=== PATIENT | female | born 1975 | race Caucasian/White ===

== ENCOUNTER 2017-07-18 13:04 | Outpatient (CLI) | payer OTHER | END 2017-07-18 13:05 | disposition home or self-care (01) | LOC: BICMAMMO 13:04 | PROVIDERS: ATTEND Obstetrics & Gynecology | DX: Z12.31 Encounter for screening mammogram for malignant neoplasm of breast (principal); Z80.3 Family history of malignant neoplasm of breast | CPT/HCPCS: 77063; 77067 ==

== ENCOUNTER 2019-05-13 08:23 | Outpatient (CLI) | payer OTHER ==
--- NOTE | 2019-05-13 09:14 | MMO ---
Right Breast MAMMO [facility]. CLINICAL HISTORY: Patient is 44 years old and is seen for diagnostic exam and lump or thickening in the outer region of the right breast. The patient has the following family history of breast cancer: maternal grandmother, at age 96. The patient has no personal history of cancer. VIEWS: The views performed were: right craniocaudal with tomosynthesis; right mediolateral oblique with tomosynthesis; right mediolateral with tomosynthesis; and right exaggerated craniocaudal. FILMS COMPARED: The present examination has been compared to prior imaging studies performed at [facility] on 10/02/2018, and at [facility] on 05/15/2016, 07/18/2017 and 05/13/2019. This study has been interpreted with the assistance of computer-aided detection. MAMMOGRAM FINDINGS: The breast is heterogeneously dense, which could obscure a lesion on mammography. There is a stable low density, oval mass measuring 7 millimeters with circumscribed margins seen in the upper-outer region of the right breast. The mass was shown to be a cyst on ultrasound. There are no suspicious masses, suspicious calcifications, or new areas of architectural distortion. IMPRESSION: THERE IS NO MAMMOGRAPHIC EVIDENCE OF MALIGNANCY. A ROUTINE FOLLOW-UP MAMMOGRAM IN 1 YEAR IS RECOMMENDED. THE RESULTS OF THIS EXAM WERE SENT TO THE PATIENT. ACR BI-RADS Category 2 - Benign finding MAMMOGRAPHY NOTE: 1. A negative mammogram report should not delay a biopsy if a dominant of clinically suspicious mass is present. 2. Approximately 10% to 15% of breast cancers are not detected by mammography. 3. Adenosis and dense breasts may obscure an underlying neoplasm. Reported by: ERICA SMITH MD Electonically Signed: [id number]
--- NOTE | 2019-05-13 09:41 | ULT ---
LIMITED RIGHT BREAST ULTRASOUND: Date: 05/13/2019 PROVIDED CLINICAL HISTORY: Right breast palpable abnormality. FINDINGS: Limited sonographic interrogation was performed in the region of palpable concern at the 10 o'clock p osition. There is a circumscribed focus of an echogenicity with enhanced through-transmission and wel l-defined back wall at the 10 o'clock position of the right breast measuring about 6.0 mm. No concern ing sonographic findings are evident. IMPRESSION: BI-RADS Category 2 - Benign findings. Simple cyst is present in the region of palpable concern. Annua l screening mammography is recommended. POS: OFF
== END 2019-05-13 08:24 | disposition home or self-care (01) ==
LOC: BICMAMMO 08:23
PROVIDERS: ATTEND Obstetrics & Gynecology
DX: N63.10 Unspecified lump in the right breast, unspecified quadrant (principal); N60.01 Solitary cyst of right breast
CPT/HCPCS: G0279